=== PATIENT | male | born 1955 | race Caucasian/White ===

== ENCOUNTER 2017-10-24 08:55 | Inpatient (IN) | payer OTHER ==
[~2017-10-24] VITALS: Ht 180.3 cm; Wt 136.7 kg
[~2017-10-24 08:55] MED LIST: HCTZ 25MG25 MG PO; LISINOPRIL10 MG PO; LOW DOSE ASPIRI81 MG PO; METFORMIN1000 MG PO; MULTIPLE VITAMI1 CAP PO; SIMVASTATIN20 MG PO
[2017-12-25] VITALS (10 sets, daily range): BP systolic 82–147; BP diastolic 47–80; PULSE 42–81; TEMP 97.4–98.7
[2017-12-25] MEDS ORDERED: CANA300T PO (06:00)
[2017-12-25] MEDS ORDERED: DIABETA 5MG5 MG/TAB PO (06:00)
[2017-12-25] MEDS ORDERED: NEURONTIN300 MG/CAP PO (06:01)
[2017-12-25 14:53] LABS: BASO % 0.3 % (0.0-2.0); EOS % 0.1 % (0-4.0); GRAN # 7.7 (1.4-6.5); GRAN % 87.1 % (42.2-75.2); HEMATOCRIT 45.3 % (42.0-52.0); HEMOGLOBIN 14.7 g/dl (13.5-18.0); LYMPH # 0.9 (1.2-3.4); LYMPH % 10.4 % (20.0-51.0); MEAN CELL VOLUME 94 fl (80.0-100.0); MEAN CORPUSCULAR HEMOGLOBIN 31 pg (27.0-31.0); MEAN CORPUSCULAR HGB CONC 33 g/dl (33.0-37.0); MEAN PLATELET VOLUME 9.3 fl (7.4-10.4); MONO # 0.2 (0.1-0.6); MONO % 1.7 % (1.7-9.3); PLATELET COUNT 235 K/mm3 (130-400); RED BLOOD COUNT 4.82 M/mm3 (4.20-5.60); REDCELL DISTRIBUTION WIDTH-CV 13.7 % (11.5-14.5)
[2017-12-25 15:03] LABS: ALBUMIN 3.8 gm/dL (3.5-5.0); CREATININE, serum 0.86 mg/dL (0.66-1.25); MAGNESIUM 1.8 mg/dL (1.6-2.3); POTASSIUM 4.7 mmol/L (3.4-5.0); TOTAL PROTEIN 6.8 gm/dL (6.4-8.2)
[2017-12-25 15:16] LABS: BILIRUBIN UNCONJUGATED 0.4 mg/dL (0.0-1.1); BILIRUBIN,DIRECT 0.2 mg/dL (0.0-0.4); BILIRUBIN,TOTAL 0.5 mg/dL (0.0-1.0)
[2017-12-25 15:33] LABS: THYROID STIMULATING HORMONE 0.667 uIU/mL (0.465-4.680)
[2017-12-26 00:37] VITALS: BP 107/54; PULSE 69; TEMP 98.5
[2017-12-26 05:42] VITALS: BP 132/87; PULSE 65; TEMP 98.2
[2017-12-26 08:00] VITALS: BP 107/63; PULSE 67; TEMP 98.3
[2017-12-26 09:40] LABS: HEMATOCRIT 40.5 % (42.0-52.0); HEMOGLOBIN 13.7 g/dl (13.5-18.0)
[2017-12-26 10:50] VITALS: BP 112/69; PULSE 63; TEMP 98.4
[2017-12-26 16:15] VITALS: BP 108/53; PULSE 80; TEMP 98.4
[2017-12-26 21:11] VITALS: BP 113/63; PULSE 83; TEMP 98.2
[2017-12-27 00:49] VITALS: BP 121/63; PULSE 84; TEMP 99.1
[2017-12-27 03:54] VITALS: BP 133/62; PULSE 80; TEMP 98.6
[2017-12-27] MEDS ORDERED: NORCO 325 MG-7.1 TAB PO (07:35)
[2017-12-27] MEDS ORDERED: ASPI325T6 PO (07:35)
[2017-12-27] MEDS ORDERED: ROXICODONE 55 MG/TAB PO (07:42)
[2017-12-27 07:56] VITALS: BP 117/62; PULSE 71; TEMP 99.2
[2017-12-27 10:43] VITALS: BP 134/64; PULSE 82; TEMP 98.1
== END 2017-12-27 15:00 | disposition home or self-care (01) | DRG 470 ==
LOC: JCC 12-25 05:13
PROVIDERS: Hospitalist; Orthopaedic Surgery
PROC: 0SRD0J9 Replacement of Left Knee Joint with Synthetic Substitute, Cemented, Open Approach (ICD-10-PCS; principal; 2017-12-25 07:30)
DX: M17.12 Unilateral primary osteoarthritis, left knee (principal); Z68.41 Body mass index [BMI] 40.0-44.9, adult; I10 Essential (primary) hypertension; E11.42 Type 2 diabetes mellitus with diabetic polyneuropathy; E66.01 Morbid (severe) obesity due to excess calories; Z87.891 Personal history of nicotine dependence; I49.9 Cardiac arrhythmia, unspecified; E78.5 Hyperlipidemia, unspecified
CPT/HCPCS: 99223; 99232-AI; A4314; A4315; A9284; C1713; C1776; J0690; J1100; J1815; J2250; J2405; J2704; J2765; J3370; J7030; J7040; J7050

== ENCOUNTER → 2017-12-11 | Outpatient (CLI) | payer OTHER ==
[2017-12-11 15:08] LABS: HIV 1/2 Antibodies Non-Reactive; HIV-1p24 Antigen Non-Reactive
== END ==
LOC: COL.LAB 13:59
PROVIDERS: Orthopaedic Surgery
DX: Z01.812 Encounter for preprocedural laboratory examination (principal); M17.12 Unilateral primary osteoarthritis, left knee